=== PATIENT | female | born 1995 | race Caucasian/White ===

== ENCOUNTER 2016-11-13 12:59 | Emergency (ER) | payer SELFPAY ==
[~2016-11-13] VITALS: Ht 162.6 cm; Wt 68.2 kg
[~2016-11-13 12:59] MED LIST: BACT800T5 PO; CIPR500T2 PO; PYRI200T4 PO
[2016-11-13 13:01] VITALS: BP 152/82; PULSE 82; RESP 12; TEMP 98.3; O2SAT 95
[2016-11-13] MEDS ORDERED: ONDANSETRON HCL 4 MG/2 ML VIAL IVP ONE (13:30)
[2016-11-13] MEDS ORDERED: HYDROmorphone HCL PF 1 MG/ML VIAL IVS ONE (13:30)
[2016-11-13] MEDS ORDERED: SODIUM CHLOR 0.9% 1000 ML INJ 1,000 ML IV ONE (13:30)
[2016-11-13 14:05] LABS: AUTOMATED NEUTROPHIL # 9.5 TH/MM3 (1.8-7.7); BASOPHIL # 0.1 TH/MM3 (0-0.2); BASOPHIL % 0.4 % (0.0-2.0); EOSINOPHIL # 0.1 TH/MM3 (0-0.4); EOSINOPHIL % 0.5 % (0.0-4.0); HEMATOCRIT 39.5 % (35.0-46.0); HEMO FLAGS DIFF FINAL; LYMPH % 14.1 % (9.0-44.0); LYMPHOCYTE # 1.7 TH/MM3 (1.0-4.8); MEAN CELL VOLUME 87.7 FL (80.0-100.0); MEAN CORPUSCULAR HEMOGLOBIN 30.2 PG (27.0-34.0); MEAN CORPUSCULAR HGB CONC 34.4 % (32.0-36.0); MONO % 6.8 % (0.0-8.0); NEUT % 78.2 % (16.0-70.0); PLATELET COUNT 256 TH/MM3 (150-450); RED BLOOD COUNT 4.51 MIL/MM3 (4.00-5.30); RED CELL DISTRIBUTION WIDTH 13.5 % (11.6-17.2); WHITE BLOOD COUNT 12.1 TH/MM3 (4.0-11.0)
--- NOTE | 2016-11-13 14:08 | PD ---
HPI . Right flank pain Chief Complaint: Complaint Time Seen by Provider: 13:18 Travel History International Travel<30 days: No Contact w/Intl Traveler<30days: No Traveled to known affect area: No History of Present Illness HPI Patient presents with right flank pain that started yesterday. It has gotten progressively worse. It is exacerbated by movement. She is also complaining with frequency of urination, small volumes of urine, dysuria. She believes that she's been running a fever. PFSH Past Medical History Medical History: Denies Significant Hx Influenza Vaccination: No ?: Not LMP: 11/12/2016 Past Surgical History Surgical History: No Previous Surgery Social History Alcohol Use: Yes (socially ) Tobacco Use: Yes Substance Use: No Allergies-Medications (Allergen,Severity, Reaction): Coded Allergies: No Known Allergies (Unverified , 11/13/16) Reported Meds & Prescriptions Reported Meds & Active Scripts Active Bactrim DS (Sulfamethoxazole-Trimethoprim) 800-160 Mg Tab 1 Tab PO BID Review of Systems Except as stated in HPI: all other systems reviewed are Neg General / Constitutional: Positive: Fever, Chills Genitourinary: Positive: Urgency, Frequency, Dysuria, Flank Pain Physical Exam Narrative GENERAL: Healthy-appearing young woman in no acute distress. SKIN: Warm and dry. HEAD: Atraumatic. Normocephalic. EYES: Pupils equal and round. ENT: No nasal bleeding or discharge. Mucous membranes pink and moist. NECK: Trachea midline. CARDIOVASCULAR: Regular rate and rhythm. RESPIRATORY: No accessory muscle use. GASTROINTESTINAL: Abdomen soft, non-tender, nondistended. Positive right CVA tenderness. MUSCULOSKELETAL: No obvious deformities. No edema. NEUROLOGICAL: Awake and alert. No obvious cranial nerve deficits. Motor grossly within normal limits. Normal speech. PSYCHIATRIC: Appropriate mood and affect; insight and judgment normal. Data Data Last Documented VS Vital Signs Date Time Temp Pulse Resp B/P Pulse Ox O2 Delivery O2 Flow Rate FiO2 11/13/16 13:01 98.3 82 12 152/82 95 Room Air Orders Urinalysis - C+S If Indicated (11/13/16 13:07) Ed Urine Pregnancytest Poc (11/13/16 13:07) Complete Blood Count With Diff (11/13/16 13:30) Basic Metabolic Panel (Bmp) (11/13/16 13:30) Iv Access Insert/Monitor (11/13/16 13:30) Sodium Chlor 0.9% 1000 Ml Inj (Ns 1000 M (11/13/16 13:30) Ondansetron Inj (Zofran Inj) (11/13/16 13:30) Hydromorphone Pf Inj (Dilaudid Pf Inj) (11/13/16 13:30) Ct Abd/Pel W/O Iv Contrast (11/13/16 ) Urine Culture (11/13/16 13:45) Ceftriaxone Inj (Rocephin Inj) (11/13/16 15:00) Labs Laboratory Tests Test 11/13/16 11/13/16 13:45 13:51 Urine Color YELLOW Urine Turbidity CLOUDY Urine pH 5.5 Urine Specific [place] 1.020 Urine Protein 100 mg/dL Urine Glucose (UA) NEG mg/dL Urine Ketones NEG mg/dL Urine Occult Blood MOD Urine Nitrite POS Urine Bilirubin NEG Urine Urobilinogen LESS THAN 2.0 MG/DL Urine Leukocyte Esterase LARGE Urine RBC /hpf Urine WBC /hpf Urine WBC Clumps MANY Urine Squamous Epithelial 5 /hpf Cells Urine Bacteria MOD /hpf Urine Mucus MOD /lpf Microscopic Urinalysis Comment CULTURE INDICATED White Blood Count 12.1 TH/MM3 Red Blood Count 4.51 MIL/MM3 Hemoglobin 13.6 GM/DL Hematocrit 39.5 % Mean Corpuscular Volume 87.7 FL Mean Corpuscular Hemoglobin 30.2 PG Mean Corpuscular Hemoglobin 34.4 % Concent Red Cell Distribution Width 13.5 % Platelet Count 256 TH/MM3 Mean Platelet Volume 9.0 FL Neutrophils (%) (Auto) 78.2 % Lymphocytes (%) (Auto) 14.1 % Monocytes (%) (Auto) 6.8 % Eosinophils (%) (Auto) 0.5 % Basophils (%) (Auto) 0.4 % Neutrophils # (Auto) 9.5 TH/MM3 Lymphocytes # (Auto) 1.7 TH/MM3 Monocytes # (Auto) 0.8 TH/MM3 Eosinophils # (Auto) 0.1 TH/MM3 Basophils # (Auto) 0.1 TH/MM3 CBC Comment DIFF FINAL Differential Comment Sodium Level 140 MEQ/L Potassium Level 3.9 MEQ/L Chloride Level 108 MEQ/L Carbon Dioxide Level 23.7 MEQ/L Anion Gap 8 MEQ/L Blood Urea Nitrogen 10 MG/DL Creatinine 0.86 MG/DL Estimat Glomerular Filtration 82 ML/MIN Rate Random Glucose 91 MG/DL Calcium Level 8.6 MG/DL MDM Medical Decision Making Medical Screen Exam Complete: Yes Emergency Medical Condition: Yes Differential Diagnosis Differential diagnosis of flank pain includes but is not limited to kidney stone , pyelonephritis, musculoskeletal pain, PE Narrative Course Patient presents for evaluation and treatment of right flank pain with associated urinary symptoms. She will be evaluated for possible pyelonephritis or kidney stone. CBC & BMP Diagram 11/13/16 13:51 U/A-->many WBCs, mod bact, lg LE, + nitrite. Last Impressions Abdomen/Pelvis CT 11/13/16 0000 Signed Impressions: Service Date/Time: November 14:00 - CONCLUSION: No acute obstructive uropathy. No CT evidence of acute appendicitis. Mild scoliosis of the lumbar spine. Salvador Antoine MD So, the patient has pyelonephritis. She will be given a dose of Rocephin here. She will be discharged on . Diagnosis Primary Impression: Pyelonephritis Patient Instructions: General Instructions, Narcotic given in the ED, Urinary Tract Infection in Women (ED) Scripts Hydrocodone-Acetaminophen (Barry)5-325 mg Tab1-2 Tab PO Q6H PRN (PAIN) #12 TAB Ref 0 Prov:Lelia Figueroa MD 11/13/16 Sulfamethoxazole-Trimethoprim (Bactrim DS)800-160 Mg Tab1 Tab PO BID #20 TAB Ref 0 Prov:Lelia Figueroa MD 11/13/16 Disposition: 01 DISCHARGE HOME Condition: Stable Lelia Figueroa MD Nov 13, 2016 14:08
[2016-11-13 14:19] LABS: BACTERIA, URINE MOD /hpf; BLOOD, URINE MOD (NEG); GLUCOSE,URINE NEG (NEG); KETONE, URINE NEG (NEG); MUCUS URINE MOD /lpf (OCC); PH, URINE 5.5 (5.0-8.5); SQUAMOUS EPITHELIAL CELL URINE 5 /hpf (0-5); URINE COLOR YELLOW (YELLW/STRAW)
[2016-11-13 14:23] LABS: BICARBONATE 23.7 MEQ/L (21.0-32.0); POTASSIUM 3.9 MEQ/L (3.5-5.1)
[2016-11-13 14:24] LABS: NITRITE,URINE POS (NEG)
[2016-11-13 14:25] LABS: COMMENT (UR) CULTURE INDICATED; CULTURE IF INDICATED CULTURE INDICATED
--- NOTE | 2016-11-13 14:28 | RADRPT ---
EXAM DATE/TIME: 11/13/2016 14:00 [facility] COMPARISON: No previous studies available for comparison. INDICATIONS : Lower back pain, right flank pain. ORAL CONTRAST: No oral contrast ingested. RADIATION DOSE: 16.41 CTDIvol (mGy) MEDICAL HISTORY : None SURGICAL HISTORY : None. ENCOUNTER: Initial ACUITY: 1 day PAIN SCALE: 7/10 LOCATION: Right flank TECHNIQUE: Volumetric scanning of the abdomen and pelvis was performed. Using automated exposure control and ad justment of the mA and/or kV according to patient size, radiation dose was kept as low as reasonably achievable to obtain optimal diagnostic quality images. FINDINGS: LOWER LUNGS: The visualized lower lungs are clear. LIVER: Homogeneous density without lesion. There is no dilation of the biliary tree. No calcified gallston es. SPLEEN: Normal size without lesion. PANCREAS: Within normal limits. KIDNEYS: Normal in size and shape. There is no mass, stone, or hydronephrosis. ADRENAL GLANDS: Within normal limits. VASCULAR: There is no aortic aneurysm. BOWEL/MESENTERY: The stomach, small bowel, and colon demonstrate no acute abnormality. There is no free intraperitone al air or fluid. The appendix is normal. ABDOMINAL WALL: Within normal limits. RETROPERITONEUM: There is no lymphadenopathy. BLADDER: No wall thickening or mass. REPRODUCTIVE: Within normal limits. INGUINAL: There is no lymphadenopathy or hernia. MUSCULOSKELETAL: Mild scoliosis of the lumbar spine. CONCLUSION: No acute obstructive uropathy. No CT evidence of acute appendicitis. Mild scoliosis of the lumbar spi ne. Salvador Antoine MD on November 13, 2016 at 14:22 Board Certified Radiologist. This report was verified electronically.
[2016-11-13] MEDS ORDERED: BACT800T5 PO (14:47)
[2016-11-13] MEDS ORDERED: NORC5TAB PO (14:51)
[2016-11-13] MEDS ORDERED: cefTRIAXone INJ 1,000 MG in SODIUM CHLORIDE 0.9% INJ 100 ML IV ONE (15:00)
== END 2016-11-13 15:37 | disposition home or self-care (01) ==
LOC: NEPE 12:59
DX: N12 Tubulo-interstitial nephritis, not specified as acute or chronic (principal); B96.20 Unspecified Escherichia coli [E. coli] as the cause of diseases classified elsewhere
CPT/HCPCS: 74176; 80048; 81001; 84703; 85025; 87077; 87086; 87186; 96361; 96365; 96375; 99284; J0696; J1170; J2405; J7030